=== PATIENT | female | born 1970 | race Caucasian/White ===

== ENCOUNTER → 2017-09-01 | Outpatient (CLI) | payer OTHER ==
[~2017-09-01] MED LIST: NAPR1TAB9 PO; SUMA100T16 PO
--- NOTE | 2017-09-07 07:37 | MAMMOGRAPHY REPORT ---
BILATERAL DIGITAL SCREENING MAMMOGRAM TOMOSYNTHESIS WITH CAD: 09/01/2017 CLINICAL HISTORY: Routine screening. Patient has no complaints. TECHNIQUE: Breast tomosynthesis in addition to standard 2D mammography was performed. Current study was also evaluated with a Computer Aided Detection (CAD) system. COMPARISON: No prior exams were available for comparison. BREAST COMPOSITION: The tissue of both breasts is extremely dense, which lowers the sensitivity of m ammography. FINDINGS: There is a partially circumscribed and obscured 9 mm oval mass in the inferior posterior l eft breast on the MLO, thought to project medially based on the CC view comparison to prior outside m ammograms would be useful to assess stability. If the outside exams are not obtained in a timely man ner, additional targeted ultrasound is recommended for further characterization. There are a few scattered punctate microcalcifications in the posterior aspect of each breast. No ot her obvious mass, architectural distortion or cluster of microcalcifications is seen. IMPRESSION: ACR BI-RADS CATEGORY 0: INCOMPLETE EVALUATION: NEED ADDITIONAL IMAGING EVALUATION The partially circumscribed and obscured 9 mm mass in the lower inner right breast needs comparison t o prior outside mammograms and/or ultrasound to assess stability. If the outside exams are not obtain ed in a timely manner, additional targeted ultrasound is recommended for further characterization. The patient will be called to schedule an appointment. Approximately 10% of breast cancers are not detected with mammography. A negative mammographic report should not delay biopsy if a clinically suggestive mass is present. Xenia Perkins M.D. ay/:09/06/2017 15:44:12 [employer]arn Sorter: Jenny WALTERS(Umesh)(Thao), [facility] letter sent: Need Priors 0 BI-RADS Code: ACR BI-RADS Category 0: Incomplete Evaluation: Need Additional Imaging Evaluation
== END | disposition home or self-care (01) ==
LOC: C.MAMM 10:11
PROVIDERS: ATTEND Family Medicine
DX: Z12.31 Encounter for screening mammogram for malignant neoplasm of breast (principal); N63.14 Unspecified lump in the right breast, lower inner quadrant